=== PATIENT | female | born 1950 | race Two or more races ===

== ENCOUNTER 2020-02-28 07:56 | Outpatient (CLI) | payer OTHER | END 2020-02-28 08:02 | disposition home or self-care (01) | LOC: NUCLEAR 07:56 | DX: R97.0 Elevated carcinoembryonic antigen [CEA] (principal); F17.200 Nicotine dependence, unspecified, uncomplicated; R91.1 Solitary pulmonary nodule | CPT/HCPCS: 78816; A9552 ==